=== PATIENT | female | born 1970 | race Caucasian/White ===

== ENCOUNTER → 2017-03-02 | Outpatient (CLI) | payer OTHER ==
--- NOTE | 2017-03-04 07:50 | MM ---
Reason for exam: screening (asymptomatic). Last mammogram was performed 1 year ago. History: Patient is nulliparous. Family history of breast cancer in paternal grandmother. Excisional biopsy of the left breast, 1994. Physical Findings: A clinical breast exam by your physician is recommended on an annual basis and results should be correlated with mammographic findings. MG Screening Mammo w CAD Bilateral CC and MLO view(s) were taken. Prior study comparison: February 25, 2016, bilateral MG screening mammo w CAD. February 22, 2015, bilateral MG screening mammo w CAD. November 11, 2013, bilateral digital screening mammo w/CAD. The breast tissue is extremely dense which could obscure a lesion on mammography. Previous mammotome biopsy in the left breast. No significant changes when compared with prior studies. ASSESSMENT: Negative, BI-RAD 1 RECOMMENDATION: Routine screening mammogram of both breasts in 1 year.
== END | disposition home or self-care (01) ==
LOC: RADMAMWWP 09:54
PROVIDERS: ATTEND Family Medicine
DX: Z12.31 Encounter for screening mammogram for malignant neoplasm of breast (principal)

== ENCOUNTER → 2018-03-11 | Outpatient (CLI) | payer OTHER ==
--- NOTE | 2018-03-12 13:25 | MM ---
Reason for exam: screening (asymptomatic). Last mammogram was performed 1 year ago. History: Patient is nulliparous. Family history of breast cancer in paternal grandmother. Excisional biopsy of the left breast, 1994. Physical Findings: A clinical breast exam by your physician is recommended on an annual basis and results should be correlated with mammographic findings. MG Screening Mammo w CAD Bilateral CC and MLO view(s) were taken. Prior study comparison: March 02, 2017, bilateral MG screening mammo w CAD. February 25, 2016, bilateral MG screening mammo w CAD. The breast tissue is extremely dense which could obscure a lesion on mammography. Finding: There are typically benign calcifications in the left breast. No suspicious abnormality. ASSESSMENT: Benign, BI-RAD 2 RECOMMENDATION: Routine screening mammogram of both breasts in 1 year.
== END | disposition home or self-care (01) ==
LOC: RADMAMWWP 13:18
PROVIDERS: ATTEND Family Medicine
DX: Z12.31 Encounter for screening mammogram for malignant neoplasm of breast (principal)
CPT/HCPCS: 77067

== ENCOUNTER → 2019-07-12 | Outpatient (CLI) | payer SELFPAY | END | disposition home or self-care (01) | LOC: LABWHC1 15:15 | PROVIDERS: ATTEND Obstetrics & Gynecology Obstetrics | DX: N83.209 Unspecified ovarian cyst, unspecified side (principal) | CPT/HCPCS: 36415; 81503 ==

== ENCOUNTER → 2019-07-25 | Outpatient (CLI) | payer OTHER ==
--- NOTE | 2019-07-26 10:10 | MM ---
Reason for exam: screening (asymptomatic). Last mammogram was performed 1 year and 4 months ago. History: Patient is nulliparous. Family history of breast cancer in paternal grandmother. Excisional biopsy of the left breast, 1994. Physical Findings: A clinical breast exam by your physician is recommended on an annual basis and results should be correlated with mammographic findings. MG Screening Mammo w CAD Bilateral CC and MLO view(s) were taken. Prior study comparison: March 11, 2018, bilateral MG screening mammo w CAD. March 02, 2017, bilateral MG screening mammo w CAD. The breast tissue is extremely dense which could obscure a lesion on mammography. Benign appearing calcifications in the left breast. No suspicious abnormality. ASSESSMENT: Benign, BI-RAD 2 RECOMMENDATION: Routine screening mammogram of both breasts in 1 year.
== END ==
LOC: RADMAMWWP 08:49
PROVIDERS: ATTEND Family Medicine
DX: Z12.31 Encounter for screening mammogram for malignant neoplasm of breast (principal)
CPT/HCPCS: 77067

== ENCOUNTER → 2019-08-01 | Outpatient (CLI) | payer OTHER ==
--- NOTE | 2019-08-01 22:32 | MR ---
EXAMINATION TYPE: MR knee RT wo con DATE OF EXAM: 08/01/2019 COMPARISON: Outside right knee x-ray June 24, 2019. HISTORY: Rt knee pain, poss meniscus tear TECHNIQUE: Multiplanar, multisequence images of the knee is performed without IV contrast. FINDINGS: MEDIAL MENISCUS: Anterior and posterior horns are intact without tear. LATERAL MENISCUS: Anterior and posterior horns are intact without tear. CRUCIATE LIGAMENTS: The anterior and posterior cruciate ligaments are intact and unremarkable. COLLATERAL LIGAMENTS: The medial collateral ligament and lateral collateral ligament complex are inta ct and unremarkable. EXTENSOR MECHANISM: Visualized quadriceps and patellar tendons are intact. EFFUSION: No significant suprapatellar joint effusion. POPLITEAL CYST: There is small popliteal/cochran cyst axial image 14. TRICOMPARTMENT SPACES: Pafs-ri-efzmxyus tricompartment joint space loss with mild tibial condylar spu rring. CARTILAGE: Chondromalacia patella with loss posterior aspect inferior patellar pole. No full-thicknes s loss is seen. BONE MARROW SIGNAL: No focal abnormal marrow signal is appreciated. OTHER: No additional significant abnormality is appreciated. IMPRESSION: No meniscal or ligamentous tear is seen. Fairly mild tricompartment degenerative changes with some chondromalacia patella noted. Small popliteal cyst.
== END | disposition home or self-care (01) ==
LOC: RADMRIMAIN 17:36
PROVIDERS: ATTEND Orthopaedic Surgery Adult Reconstructive Orthopaedic Surgery
DX: M17.11 Unilateral primary osteoarthritis, right knee (principal); M22.41 Chondromalacia patellae, right knee; M71.21 Synovial cyst of popliteal space [Baker], right knee

== ENCOUNTER → 2019-09-24 | Outpatient (CLI) | payer OTHER ==
[2019-09-24 10:23] LABS: Basophils % (A) 0 %; Eosinophils # (A) 0.1 k/uL (0-0.7); Eosinophils % (A) 2 %; HCT 42.4 % (34.0-46.0); HGB 14.4 gm/dL (11.4-16.0); Lymphocytes # (A) 1.8 k/uL (1.0-4.8); Lymphocytes % (A) 23 %; MCHC 34.1 g/dL (31.0-37.0); Monocytes # (A) 0.4 k/uL (0-1.0); Monocytes % (A) 5 %; Neutrophils # (A) 5.5 k/uL (1.3-7.7); Neutrophils % (A) 69 %; Platelet Count 377 k/uL (150-450); RBC 4.66 m/uL (3.80-5.40); RDW 12.5 % (11.5-15.5)
[2019-09-24 10:34] LABS: African American GFR (CKD) >90 (>60 ml/min/1.73 sqM); Anion Gap 7 mmol/L; Blood Urea Nitrogen 12 mg/dL (7-17); Carbon Dioxide 27 mmol/L (22-30); Chloride 105 mmol/L (98-107); Glucose 75 mg/dL (74-99); Non-African American GFR(CKD) >90 (>60 ml/min/1.73 sqM); Potassium 4.6 mmol/L (3.5-5.1); Sodium 139 mmol/L (137-145)
== END | disposition home or self-care (01) ==
LOC: LABPAT 09:46
PROVIDERS: ATTEND Obstetrics & Gynecology Obstetrics
DX: Z01.812 Encounter for preprocedural laboratory examination (principal); D25.9 Leiomyoma of uterus, unspecified; N83.209 Unspecified ovarian cyst, unspecified side; N92.0 Excessive and frequent menstruation with regular cycle; N80.9 Endometriosis, unspecified
CPT/HCPCS: 36415; 80051; 82565; 82947; 84520; 85025

== ENCOUNTER 2019-10-04 08:18 | Day surgery (SDC) | payer OTHER ==
--- NOTE | 2019-09-27 16:37 | P.HPOB ---
History of Present Illness H&P Date: 09/27/19 Chief Complaint: Menorrhagia, endometrioma, uterine fibroid, h/o abnormal pap with LEEP This is a 49yo female G0 that presented with c/o HMB, and dysmenorrhea. she initially was considering an EA but given her findings of endometrioma and uterine fibroid her risk of failure is increased and she wishes definitive treatment with RAVH. she does also have a ho abnormal pap with subsequent LEEP procedure. menses have been regular but heavy with clots. us did show suspicion for adenomyssis. she notes normal bowel and bladder function. Review of Systems Constitutional: Denies chills, Denies fatigue, Denies fever Ears, nose, mouth and throat: Denies headache Cardiovascular: Denies leg edema Respiratory: Denies dyspnea Gastrointestinal: Denies constipation, Denies diarrhea, Denies nausea, Denies vomiting Genitourinary: Reports abnormal vaginal bleeding, Reports dysmenorrhea Menstruation: Reports period heavy Exam Osteopathic Statement: *. No significant issues noted on an osteopathic structural exam other than those noted in the History and Physical/Consult. targeted physical exam done in general this is a well nourished well developed femal in NAD< brething is non labored and lungs are CTA b/l, heart has a RRR, abdomen is soft and non tender, uterus is normal is size with no adnexal masses appreciated. Assessment and Plan (1) Abnormal uterine bleeding (AUB) Status: Acute Code(s): N93.9 - ABNORMAL UTERINE AND VAGINAL BLEEDING, UNSPECIFIED SNOMED Code(s): 36958675332368 (2) Menorrhagia Status: Acute Code(s): N92.0 - EXCESSIVE AND FREQUENT MENSTRUATION WITH REGULAR CYCLE SNOMED Code(s): 047449458 (3) Endometrioma Status: Acute Code(s): N80.9 - ENDOMETRIOSIS, UNSPECIFIED SNOMED Code(s): 022710659 (4) Uterine fibroid Status: Acute Code(s): D25.9 - LEIOMYOMA OF UTERUS, UNSPECIFIED SNOMED Code(s): 82444085 Plan: this 49 yo G0 with HMB, menorrhagia sx, endometrioma, and uterine fibroid presents for RAVH/LSO/DC, possible open to complete procedure. risks are reviewed with pt in detail and all questions answered. risks reviewed including but not limited to infection bleeding damage to bladder bowel or ureteric injury discussed. she states understanding.
[2019-09-28 12:58] VITALS: BMI 24.7
[~2019-10-04 08:18] MED LIST: DEXAMETHASONE SOD PHOSPHATE 10 MG/ML 1 ML VIAL IV ONE; MIDAZOLAM 2 MG/2 ML VIAL IV PRN; ONDANSETRON 4 MG/2 ML VIAL IVP ONE; SCOPOLAMINE 1.5MG/72HR PATCH TRANSDERM ONE
[2019-10-04] MEDS: LACTATED RINGERS 1,000 ML IV SCH ×2 (09:20→14:28)
[2019-10-04] MEDS ORDERED: LIDOCAINE 1% 20 ML VIAL (10MG/ML) FOR IV START IV ONE (09:20)
[2019-10-04] MEDS ORDERED: PROPOFOL 10 MG/ML 20 ML VIAL IV ONE (10:06)
[2019-10-04] MEDS ORDERED: ROCURONIUM BROMIDE 10 MG/ML 10 ML VIAL IV ONE (10:06)
[2019-10-04] MEDS ORDERED: LIDOCAINE 1% INJ 10MG/ML (20 ML MDV) ONE (10:06)
[2019-10-04] MEDS ORDERED: MIDAZOLAM 2 MG/2 ML VIAL ONE (10:06)
[2019-10-04] MEDS ORDERED: ONDANSETRON 4 MG/2 ML VIAL ONE (10:06)
[2019-10-04] MEDS ORDERED: fentaNYL (PF) 50 MCG/ML 2 ML AMP ONE (10:06)
[2019-10-04] MEDS ORDERED: GLYCOPYRROLATE 0.2 MG/ML 2 ML VIAL ONE (10:06)
[2019-10-04] MEDS ORDERED: NEOSTIGMINE 1 MG/ML 10 ML VIAL ONE (10:06)
[2019-10-04] MEDS ORDERED: BUPIVACAINE (PF) 0.25% 30 ML VIAL SQ ONE (10:47)
[2019-10-04] MEDS ORDERED: Acetaminophen-Codeine 300-30mg TAB PO PRN (11:24)
[2019-10-04] MEDS ORDERED: IBUPROFEN 600 MG TAB PO PRN (11:24)
[2019-10-04] MEDS ORDERED: SIMETHICONE 80 MG CHEWABLE PO PRN (11:24)
--- NOTE | 2019-10-04 11:34 | P.OP ---
Date of Procedure: 10/04/19 Preoperative Diagnosis: Menorrhagia, uterine fibroids, endometrioma Postoperative Diagnosis: Same Procedure(s) Performed: Robotic cyst vaginal hysterotomy with diagnostic cystoscopy Anesthesia: PAXTON Surgeon: Suzy Smiley Data Management Analyst #1: Jeremiah Chapa Estimated Blood Loss (ml): 10 IV fluids (ml): 600 Urine output (ml): 450 Pathology: other (Uterus and bilateral fallopian tubes) Condition: stable Disposition: PACU Indications for Procedure: Heavy menstrual bleeding and uterine fibroid. Operative Findings: Enlarged globular-appearing uterus with enlarged uterine fibroid, normal ovaries were appreciated bilaterally. Normal cystoscopy was noted Description of Procedure: Patient was seen in the preoperative area and multiple questions are answered. Informed consent was obtained. Risks were reviewed including but not limited to infection, bleeding, damage to bladder, bowel, ureteric injury patient stated understanding and wished to proceed. Patient was taken back to the operating suite where general anesthesia was obtained without difficulty by the anesthesia department. She was then prepped and draped in the normal sterile fashion in th e dorsal lithotomy position. Hough catheter was placed under sterile technique. Weighted speculum was placed in the posterior vaginal vault the interval of the cervix is visualized and grasped with a single-tooth tenaculum. Endocervical canal was then dilated and a Xercise[employer] care uterine manipulator was placed. All instrument were then removed from the patient's vaginal vault. Attention was then turned the patient's abdomen where approximately 2 finger breaths above the umbilicus a small skin incision is made. This incision the Veress needle was placed, once the Veress needle was deemed to be in the appropriate position with a drop of CO2 pressure with insufflation of CO2 gas CO2 insufflation was allowed to occur. 3 L of gas or used to obtain pneumoperitoneum. At this time the incision was elongated to 12 mm and a 12 mm trocar and sleeve is placed in the skin incision toward the pneumoperitoneum. On except visualized. Additional port sites are placed 10 cm lateral and 37 m inferior to midline port these are 8 mm ports and placed under direct visualization. The left upper quadrant a 12 mm skin incision is made and a 12 mm trocar and sleeve is placed through the skin incision and toward the pneumoperitoneum under direct visualization. At this time the da Rickie robot was docked in the usual fashion. The operative arms now placed. In the right operative arm the monopolar scissors is placed in the left operative arm the bipolar forceps is placed. The left fallopian tube was then grasped and mesosalpinx was coagulated and transected. This continued to the uterine ovarian ligament which was regular distally proximal plane divided. This continued through the broad and toward the round which is coagulative distally and proximally divided. The bladder flap was then created using sharp and blunt dissection. The ascending branch the uterine artery was visualized coagulated distally and proximally and divided. Hemostasis was appreciated throughout. Attention was then turned to the patient's right fallopian tube which was grasped elevated and mesosalpinx was coagulated and transected. The round ligament was grasped coagulated distally and proximally and divided. Hemostasis was appreciated. The bladder flap from the right was then created using sharp and blunt dissection. The ascending branch the uterine artery was then visualized coagulated distally and proximal plane divided. Hemostasis was appreciated. Ray-El was then placed into the abdomen as a means to dissect the bladder flap from the operating field. At this time the only remaining attachment was a vaginal attachment therefore the placenta was removed and a colpotomy incision was made in a circumferential fashion and the uterus and fallopian tubes were delivered through the vaginal opening. The pelvis was then copiously irrigated and the vaginal cuff was closed with 0 Vicryl in interrupted fashion. 4 sutures were used to obtain hemostasis. On inspection the patient's vaginal cuff after closure and hemostasis was appreciated. All instruments were removed from the patient's abdomen. Attention was then turned the patient's Hough catheter which was removed without difficulty cystoscope was performed. The cystoscope was placed in the urethra and toward the bladder bladder bubble was noted the bladder was noted to be intact and both ureteral orifices were noted to be spilling clear yellow urine. The cystoscopy fluid along with the cystoscope was removed and the Hough catheter was replaced. Attention then turned the patient's abdomen the skin incisions were closed with 4-0 Vicryl in a subarticular fashion Steri- Strips and sterile dressings were applied as needed. Patient tolerated procedure well all counts are correct 2 patient was taken the recovery room awake in stable condition.
[2019-10-04] MEDS ORDERED: diphenhydrAMINE 50 MG/ML 1 ML VIAL IVP ONE (11:40)
[2019-10-04] MEDS: HYDROmorphone 0.5 MG/0.5 ML SYRINGE IVP PRN ×3 (11:55→12:27)
[2019-10-04] MEDS ORDERED: IBUPROFEN IV 800 MG in SODIUM CHLORIDE 0.9% 250 ML IV ONE (13:00)
[2019-10-04] MEDS ORDERED: ACETAMINOPHEN IV (For NPO) 1,000 MG in EMPTY BAG 1 BAG IVPB ONE (13:00)
[2019-10-04] MEDS: Acetaminophen-Codeine 300-30mg TAB PO PRN ×2 (18:52→22:58)
[2019-10-04] MEDS: SENNOSIDES-DOCUSATE SODIUM 1 EACH TAB PO SCH (21:01)
[2019-10-05 05:44] VITALS: RESP 16
--- NOTE | 2019-10-05 08:03 | P.DS ---
Providers Date of admission: 10/04/2019 Expected date of discharge: 10/05/19 Attending physician: Suzy Smiley Primary care physician: Sherri Kraft - Discharge Diagnosis(es) (1) Abnormal uterine bleeding (AUB) Current Visit: No Status: Acute (2) Menorrhagia Current Visit: No Status: Acute (3) Endometrioma Current Visit: No Status: Acute (4) Uterine fibroid Current Visit: No Status: Acute Hospital Course: This pleasant 41-year-old female presented yesterday for robotic-assisted vaginal hysterectomy secondary to menorrhagia, known uterine fibroids and ovarian cyst, endometrioma. Patient had been being followed conservatively and requests definitive treatment as her symptoms are worsening. Her suture was performed without difficulty for further details on the procedure please see the operative report. Patient's postoperative course has been uneventful. On this postop day #1 she is ambulating without difficulty and we are awaiting a s pontaneous void after Hough removal. She states her pain is well-controlled. She denies concerns and states she is ready for discharge home. Patient Condition at Discharge: Good Plan - Discharge Summary Discharge Rx Participant: Yes New Discharge Prescriptions: No Action No Known Home Medications Discharge Medication List No Known Home Medications 09/28/19 [History] Follow up Appointment(s)/Referral(s): Suzy Smiley DO [Doctor of Osteopathic Medicine] - 2 Weeks Patient Instructions/Handouts: Laparoscopic Hysterectomy (DC), Laparoscopic Hysterectomy (GEN) Discharge Disposition: HOME SELF-CARE
[2019-10-05] MEDS: SENNOSIDES-DOCUSATE SODIUM 1 EACH TAB PO SCH (08:46)
[2019-10-05 09:58] VITALS: BP 108/72; PULSE 69; TEMP 98.6
[2019-10-05 10:59] LABS: Basophils % (A) 0 %; Eosinophils # (A) 0.2 k/uL (0-0.7); Eosinophils % (A) 2 %; HCT 40.8 % (34.0-46.0); HGB 13.6 gm/dL (11.4-16.0); Lymphocytes # (A) 2.9 k/uL (1.0-4.8); Lymphocytes % (A) 31 %; MCH 30.8 pg (25.0-35.0); MCHC 33.4 g/dL (31.0-37.0); MCV 92.2 fL (80.0-100.0); Monocytes # (A) 0.5 k/uL (0-1.0); Monocytes % (A) 6 %; Neutrophils # (A) 5.6 k/uL (1.3-7.7); Neutrophils % (A) 60 %; Platelet Count 331 k/uL (150-450); RBC 4.43 m/uL (3.80-5.40); RDW 12.4 % (11.5-15.5); WBC 9.3 k/uL (3.8-10.6)
== END 2019-10-05 10:30 | disposition home or self-care (01) ==
LOC: OR 08:18 → 6PED 11:34 → OR 10-05 10:30
PROVIDERS: ATTEND Obstetrics & Gynecology Obstetrics
DX: D25.9 Leiomyoma of uterus, unspecified (principal); N72 Inflammatory disease of cervix uteri; N83.8 Other noninflammatory disorders of ovary, fallopian tube and broad ligament; N92.0 Excessive and frequent menstruation with regular cycle; N80.9 Endometriosis, unspecified; Z87.891 Personal history of nicotine dependence; N83.209 Unspecified ovarian cyst, unspecified side
CPT/HCPCS: 58571; 81025; 86900; 86901; 85025; 86850; 88307; J1200; J1100; J0690; J2405; J0131; J1741; J1170

== ENCOUNTER → 2020-11-01 | Outpatient (CLI) | payer OTHER ==
--- NOTE | 2020-11-06 09:59 | MM ---
Reason for exam: screening (asymptomatic). Last mammogram was performed 1 year and 3 months ago. History: Patient is nulliparous. Family history of breast cancer in paternal grandmother. Excisional biopsy of the left breast, 1994. Physical Findings: A clinical breast exam by your physician is recommended on an annual basis and results should be correlated with mammographic findings. MG Screening Mammo w CAD Bilateral CC and MLO view(s) were taken. Prior study comparison: July 25, 2019, bilateral MG screening mammo w CAD. March 11, 2018, bilateral MG screening mammo w CAD. The breast tissue is extremely dense which could obscure a lesion on mammography. There is chronic nodularity in the left breast. Subareolar focal asymmetry on the left is more defined. ASSESSMENT: Incomplete: need additional imaging evaluation, BI-RAD 0 RECOMMENDATION: Special view mammogram of the left breast. (3D) If lesion persists on supplemental views, image directed ultrasound is recommended. [facility] will attempt to contact patient to return for supplemental views and ultrasound if indicated.
== END | disposition home or self-care (01) ==
LOC: RADMAMWWP 07:33
PROVIDERS: ATTEND Obstetrics & Gynecology Obstetrics
DX: Z12.31 Encounter for screening mammogram for malignant neoplasm of breast (principal)
CPT/HCPCS: 77067

== ENCOUNTER → 2020-11-09 | Outpatient (CLI) | payer OTHER ==
--- NOTE | 2020-11-12 08:51 | MM ---
Reason for exam: additional evaluation requested from abnormal screening. Last mammogram was performed less than 1 month ago. History: Patient is nulliparous. Family history of breast cancer in paternal grandmother. Excisional biopsy of the left breast, 1994. Physical Findings: Nurse did not find any significant physical abnormalities on exam. MG Work Up Mamm w CAD LT Spot compression CC, spot compression MLO, and LM view(s) were taken of the left breast. Prior study comparison: November 01, 2020, bilateral MG screening mammo w CAD. July 25, 2019, bilateral MG screening mammo w CAD. The breast tissue is extremely dense which could obscure a lesion on mammography. There is no discrete abnormality including area of concern subareolar left breast. These results were verbally communicated with the patient and result sheet given to the patient on 11/09/20. ASSESSMENT: Probably benign, BI-RAD 3 RECOMMENDATION: Follow-up diagnostic mammogram of the left breast in 6 months.
== END | disposition home or self-care (01) ==
LOC: RADMAMWWP 14:52
PROVIDERS: ATTEND Obstetrics & Gynecology Obstetrics
DX: R92.8 Other abnormal and inconclusive findings on diagnostic imaging of breast (principal)
CPT/HCPCS: 77065

== ENCOUNTER → 2024-01-14 | Outpatient (CLI) | payer OTHER ==
--- NOTE | 2024-01-17 18:04 | MM ---
Reason for Exam: Screening (asymptomatic). Last screening mammogram was performed 12 month(s) ago. Patient History: Menarche at age 15. Patient has no children. Hysterectomy at age 49. Postmenopausal. 1994, Excisional Biopsy on the Left side. Paternal grandmother had breast cancer. Risk Values: Makenna 5 year model risk: 1.3%. NCI Lifetime model risk: 10.3%. Prior Study Comparison: 11/09/2020 Left Diagnostic Mammogram, [facility]. 11/28/2021 Bilateral Diagnostic Mammogram, [facility]. 01/08/2023 Bilateral MG screening mammo w CAD, [facility]. Tissue Density: The breasts are heterogeneously dense, which may obscure small masses. Findings: Analyzed By CAD. Nodular asymmetry posterior outer left cc view has become gradually more defined. This may represent superimposition shadow but further evaluation is recommended. Otherwise, no significant change. Overall Assessment: Incomplete: need additional imaging evaluation, BI-RAD 0 Management: Special View Mammogram of the left breast. Diagnostic Breast Ultrasound of the left breast. Additional views to include spot 3-D CC, 3-D XCCL, 3-D CC rolled, and 3-D lateral views (including far posterior tissues). Left breast ultrasound if any persisting abnormality. [facility] will attempt to contact patient to return for supplemental views and ultrasound if indicated. Electronically signed and approved by: Katie Rico M.D. Radiologist
== END | disposition home or self-care (01) ==
LOC: RADMAMWWP 09:11
PROVIDERS: ATTEND Obstetrics & Gynecology Obstetrics
DX: Z12.31 Encounter for screening mammogram for malignant neoplasm of breast (principal); Z78.0 Asymptomatic menopausal state; Z80.3 Family history of malignant neoplasm of breast
CPT/HCPCS: 77067

== ENCOUNTER → 2024-01-21 | Outpatient (CLI) | payer OTHER ==
--- NOTE | 2024-01-21 13:50 | MM ---
Reason for Exam: Additional evaluation requested from abnormal screening. Last screening mammogram was performed less than 1 month ago. Patient History: Menarche at age 15. Patient has no children. Hysterectomy at age 49. Postmenopausal. 1994, Excisional Biopsy on the Left side. Paternal grandmother had breast cancer. Risk Values: Makenna 5 year model risk: 1.1%. NCI Lifetime model risk: 8.8%. Prior Study Comparison: 11/28/2021 Bilateral Diagnostic Mammogram, [facility]. 01/08/2023 Bilateral MG screening mammo w CAD, [facility]. 01/14/2024 Bilateral MG screening mammo w CAD, [facility]. Tissue Density: Left: The breasts are heterogeneously dense, which may obscure small masses. Findings: Analyzed By CAD. Focal asymmetry at approximately 7-9 cm from the nipple in the upper outer quadrant. This measures up to 1 cm. Right breast colon. No new suspicious masses, calcifications or distortions. Overall Assessment: Incomplete: need additional imaging evaluation, BI-RAD 0 Management: Diagnostic Breast Ultrasound of the left breast. Results were given to the patient verbally at the time of exam. Patient should continue monthly self-breast exams. A clinical breast exam by your physician is recommended on an annual basis. This exam should not preclude additional follow-up of suspicious palpable abnormalities. Note on Makenna scores and lifetime risk: 1. A Makenna score greater than 3% is considered moderate risk. If this is the case, consider specialist referral to assess eligibility for a risk reducing agent. 2. If overall lifetime risk for the development of breast cancer is 20% or higher, the patient may qualify for future screening with alternating mammogram and breast MRI. Electronically signed and approved by: Gelacio See DO
--- NOTE | 2024-01-21 14:55 | USB ---
Reason for Exam: Additional evaluation requested from abnormal screening. Patient History: Menarche at age 15. Patient has no children. Hysterectomy at age 49. Postmenopausal. Paternal grandmother had breast cancer. Risk Values: Makenna 5 year model risk: 1.1%. NCI Lifetime model risk: 8.8%. Technique: Method: Targeted. Prior Study Comparison: 11/28/2021 Bilateral Diagnostic Mammogram, [facility]. 01/08/2023 Bilateral MG screening mammo w CAD, [facility]. 01/14/2024 Bilateral MG screening mammo w CAD, [facility]. Findings: The upper outer quadrant of the left breast, the axilla of the left breast and the retroareolar of the left breast were scanned. Technique utilized:US breast workup limited LT Image; Ultrasound imaging of: All 4 quadrants, the retroareolar region and axilla. Suspicious hypoechoic lesion at 1:00 9 cm nipple measuring 10 x 5 x 9 mm. Additional anechoic cysts are identified. At 3:00 9 cm from nipple and 7 cm from nipple measuring up to 9 mm. Dilated ducts are seen in the posterior nipple on the left. Nonenlarged lymph nodes in the left axilla. Overall Assessment: Suspicious, BI-RAD 4 Management: Ultrasound Core Biopsy of the left breast. Ultrasound-guided Biopsy of the left breast at 1:00 9 cm the nipple A clinical breast exam by your physician is recommended on an annual basis and results should be correlated with mammographic findings. This exam should not preclude additional follow-up of suspicious palpable abnormalities. Results were given to the patient verbally at the time of exam. Electronically signed and approved by: Gelacio See DO
== END | disposition home or self-care (01) ==
LOC: RADMAMWWP 13:15
PROVIDERS: ATTEND Obstetrics & Gynecology Obstetrics
DX: N60.12 Diffuse cystic mastopathy of left breast (principal); R92.332 Mammographic heterogeneous density, left breast; Z80.3 Family history of malignant neoplasm of breast; Z78.0 Asymptomatic menopausal state
CPT/HCPCS: 77061; 77065

== ENCOUNTER → 2024-01-25 | Outpatient (CLI) | payer OTHER ==
[2024-01-25 18:18] LABS: Basophils # (A) 0.04 X 10*3/uL (0.00-0.10); Basophils % (A) 0.6 %; Eosinophils # (A) 0.09 X 10*3/uL (0.04-0.35); Eosinophils % (A) 1.3 %; HCT 42.5 % (37.2-46.3); HGB 14.2 g/dL (12.0-15.0); Lymphocytes # (A) 1.74 X 10*3/uL (0.90-5.00); Lymphocytes % (A) 25.4 %; MCH 30.5 pg (27.0-32.0); MCHC 33.4 g/dL (32.0-37.0); MCV 91.4 FL (80.0-97.0); Mean Platelet Volume 9.9 FL (9.5-12.2); Monocytes # (A) 0.41 X 10*3/uL (0.20-1.00); NRBC Per 100 WBC 0 X 10*3/uL (0.00-0.01); Neutrophils # (A) 4.55 X 10*3/uL (1.80-7.70); Neutrophils % (A) 66.4 %; Platelet Count 250 X 10*3/uL (140-440); RBC 4.65 X 10*6/uL (4.10-5.20); RDW 12.3 % (11.5-14.5); WBC 6.85 X 10*3/uL (4.50-10.00)
[2024-01-25 19:07] LABS: ALT 21 U/L (8-44); AST 26 U/L (13-35); Albumin 4.4 g/dL (3.8-4.9); Albumin/Globulin Ratio 1.83 Ratio (1.60-3.17); Alkaline Phosphatase 74 U/L (41-126); BUN/Creat Ratio 10.14 Ratio (12.00-20.00); Blood Urea Nitrogen 7.1 mg/dL (9.0-27.0); Calcium 9.3 mg/dL (8.7-10.3); Carbon Dioxide 25.5 mmol/L (21.6-31.8); Chloride 102 mmol/L (96-109); Chol/HDL Ratio 3.13 Ratio; Globulin 2.4 g/dL (1.6-3.3); Glucose 86 mg/dL (70-110); LDL Cholesterol,Calculated 120.8 mg/dL (0.0-131.0); Sodium 138 mmol/L (135-145); T4, Free (Free Thyroxine) 0.98 ng/dL (0.80-1.80); Total Bilirubin 0.4 mg/dL (0.3-1.2); Total Protein 6.8 g/dL (6.2-8.2)
[2024-01-25 19:53] LABS: Cancer Antigen 125 21.6 U/mL (0.0-30.1)
== END | disposition home or self-care (01) ==
LOC: LABWHC1 09:03
PROVIDERS: ATTEND Family Medicine
DX: Z00.00 Encounter for general adult medical examination without abnormal findings (principal); Z13.220 Encounter for screening for lipoid disorders; D39.11 Neoplasm of uncertain behavior of right ovary; D51.1 Vitamin B12 deficiency anemia due to selective vitamin B12 malabsorption with proteinuria; F41.1 Generalized anxiety disorder; E55.9 Vitamin D deficiency, unspecified
CPT/HCPCS: 36415; 80053; 80061; 82306; 82607; 84439; 84443; 85025; 86304

== ENCOUNTER 2024-03-16 11:13 | Day surgery (SDC) | payer OTHER ==
[2024-03-09 10:39] VITALS: BMI 23.8
[2024-03-16 11:53] VITALS: TEMP 97.3
[2024-03-16] MEDS: LACTATED RINGERS 1,000 ML IV SCH (11:55)
[2024-03-16] MEDS: LIDOCAINE 1% (10MG/ML) FOR IV START INTRADERMA ONE (11:56)
[2024-03-16 12:07] LABS: Glucose,Whole Blood 79 mg/dL (70-110)
[2024-03-16] MEDS ORDERED: PROPOFOL 10 MG/ML 20 ML VIAL IV ONE (12:44)
--- NOTE | 2024-03-16 12:58 | P.PCN ---
Date of Procedure: 03/16/24 Procedure(s) Performed: BRIEF HISTORY: Patient is a 53-year-old pleasant white female scheduled for an elective colonoscopy as a part of screening for colon cancer. PROCEDURE PERFORMED: Colonoscopy. PREOPERATIVE DIAGNOSIS: Screening for colon cancer. IV sedation per Anesthesia. PROCEDURE: After informed consent was obtained, the patient, was brought into the endoscopy unit. IV sedation was administered by Anesthesia under continuous monitoring. Digital rectal examination was normal. Initially the Olympus CF-160 flexible video colonoscope was then inserted in the rectum, gradually advanced into the cecum without any difficulty. Careful examination was performed as the scope was gradually being withdrawn. Ileocecal valve and the appendiceal orifice were visualized and appeared normal. Prep was poor and centimeters of the colon sterilization was performed.. Mucosa of the cecum, ascending colon, transverse colon, descending colon, sigmoid colon, and rectum appeared normal. Retroflexion was performed in the rectum and no lesions were seen. The patient tolerated the procedure well. IMPRESSION: Normal-appearing colon from rectum to cecum with no evidence of colorectal neoplasia.. RECOMMENDATIONS: Findings of this examination were discussed with the patient as well as her family. She was advised to have repeat screening colonoscopy in 10 years..
[2024-03-16 13:37] VITALS: BP 124/78; PULSE 67; RESP 18
== END 2024-03-16 13:55 | disposition home or self-care (01) ==
LOC: ORWHC2ENDO 11:13
PROVIDERS: ATTEND Internal Medicine Gastroenterology
DX: Z12.11 Encounter for screening for malignant neoplasm of colon (principal)
CPT/HCPCS: 45378; J2704

== ENCOUNTER → 2024-08-15 | Outpatient (CLI) | payer OTHER ==
--- NOTE | 2024-08-15 08:46 | MM ---
Reason for Exam: Follow-up at short interval from prior study. Last screening mammogram was performed 7 month(s) ago. Patient History: Menarche at age 15. Patient has no children. Hysterectomy at age 49. Postmenopausal. 02/03/2024, Benign US biopsy breast VAD LT on the left side. Paternal grandmother had breast cancer. Risk Values: Makenna 5 year model risk: 1.3%. NCI Lifetime model risk: 10.1%. Prior Study Comparison: 01/14/2024 Bilateral MG screening mammo w CAD, [facility]. 01/21/2024 Left MG 3D work up w/cad LT, [facility]. 02/03/2024 Left MG diagnostic mammo LT wo CAD., [facility]. Tissue Density: Left: There are scattered areas of fibroglandular density. Findings: Analyzed By CAD. Left breast biopsy clips. No new suspicious masses, calcifications or distortions. Overall Assessment: Benign, BI-RAD 2 Management: Screening Mammogram of both breasts in 1 year. Results were given to the patient verbally at the time of exam. Patient should continue monthly self-breast exams. A clinical breast exam by your physician is recommended on an annual basis. This exam should not preclude additional follow-up of suspicious palpable abnormalities. Note on Makenna scores and lifetime risk: 1. A Makenna score greater than 3% is considered moderate risk. If this is the case, consider specialist referral to assess eligibility for a risk reducing agent. 2. If overall lifetime risk for the development of breast cancer is 20% or higher, the patient may qualify for future screening with alternating mammogram and breast MRI. [facility], , 08/15/2024 8:44 AM. Electronically signed and approved by: Gelacio eSe DO
--- NOTE | 2024-08-15 08:49 | USB ---
Reason for Exam: Follow-up at short interval from prior study. Patient History: Menarche at age 15. Patient has no children. Hysterectomy at age 49. Postmenopausal. 02/03/2024, Benign US biopsy breast VAD LT on the left side. Paternal grandmother had breast cancer. Risk Values: Makenna 5 year model risk: 1.3%. NCI Lifetime model risk: 10.1%. Technique: Method: Targeted. Prior Study Comparison: 01/14/2024 Bilateral MG screening mammo w CAD, [facility]. 01/21/2024 Left MG 3D work up w/cad LT, [facility]. 02/03/2024 Left MG diagnostic mammo LT wo CAD., [facility]. Findings: The upper outer quadrant of the left breast, the axilla of the left breast and the retroareolar of the left breast were scanned. Technique utilized:US breast limited LT Image; Ultrasound imaging of: Area of concern, retroareolar region and axilla. Appears a biopsy lesion with clip in place, No new suspicious mass. Overall Assessment: Benign, BI-RAD 2 Management: Screening Mammogram of both breasts in 1 year. A clinical breast exam by your physician is recommended on an annual basis and results should be correlated with mammographic findings. This exam should not preclude additional follow-up of suspicious palpable abnormalities. Results were given to the patient verbally at the time of exam. [facility], , 08/15/2024 8:46 AM. Electronically signed and approved by: Gelacio See DO
== END | disposition home or self-care (01) ==
LOC: RADMAMWWP 07:51
PROVIDERS: ATTEND Surgery
CPT/HCPCS: 77061; 77065